=== PATIENT | male | born 1970 | race Caucasian/White ===

== ENCOUNTER → 2022-05-16 | Outpatient (CLI) | payer OTHER, SELFPAY ==
[2022-05-16 10:42] LABS: Troponin-I HS 8 pg/mL (3.0-78.0)
== END | disposition home or self-care (01) ==
LOC: LABSPEC 10:10
PROVIDERS: Visit Provider Internal Medicine
DX: R07.89 Other chest pain (principal)
CPT/HCPCS: 84484

== ENCOUNTER → 2022-06-06 | Outpatient (CLI) | payer OTHER, MEDICAID, SELFPAY ==
--- NOTE | 2022-06-06 09:00 | ECHOD_ITS ---
Reason For Study: CHEST PAIN Procedure This was a 2D Doppler, Color Flow transthoracic echocardiogram. Exam performed in department. Left Ventricle Normal LV size. Left ventricular systolic function is normal. The estimated ejection fraction is 55 %. Stage 1 diastolic dysfunction. No regional wall motion abnormalities noted. Right Ventricle Normal RV size. Normal systolic function. Atria Normal left atrium. Normal right atrium. Mitral Valve Normal mitral valve. Tricuspid Valve Normal tricuspid valve. Aortic Valve Normal aortic valve. Pulmonic Valve Normal pulmonic valve. Great Vessels Normal aortic root. The pulmonary artery is normal size. Normal inferior vena cava. Pericardium/Pleural No pericardial effusion. MMode/2D Measurements & Calculations RVDd: 3.6 cm Ao root diam: 3.0 cm LAV(MOD-bp): 75.7 ml LAV(MOD-bp) Indexed: 38.0 ml/m2 LAV(MOD-sp2): 86.3 ml LAV(MOD-sp4): 58.0 ml SV(MOD-sp4): 74.2 ml LVAd ap4: 39.0 cm2 LVAd ap2: 38.2 cm2 LVLd ap4: 9.0 cm LVLd ap2: 8.7 cm EDV(MOD-sp4): 137.8 ml EDV(MOD-sp2): 139.1 ml EDV(sp4-el): 144.1 ml EDV(sp2-el): 142.2 ml LVAs ap4: 24.5 cm2 LVAs ap2: 24.1 cm2 LVLs ap4: 8.0 cm LVLs ap2: 7.4 cm ESV(MOD-sp4): 63.5 ml ESV(MOD-sp2): 65.0 ml ESV(sp4-el): 63.7 ml ESV(sp2-el): 66.4 ml EF(MOD-sp4): 53.9 % EF(MOD-sp2): 53.3 % EF(sp4-el): 55.8 % SV(MOD-sp2): 74.1 ml SV(sp4-el): 80.4 ml LA A4 area: 19.3 cm2 LA dimension(2D): 3.9 cm RA A4 area: 18.8 cm2 Doppler Measurements & Calculations MV E max elver: 47.8 cm/sec Lat Peak E' Elver: 13.0 cm/sec Med Peak E' Elver: 8.9 cm/sec MV A max elver: 106.5 cm/sec E/E' lat: 3.7 E/E' med: 5.4 MV E/A: 0.45 Ao V2 max: 141.3 cm/sec LV V1 max: 111.0 cm/sec PA V2 max: 91.7 cm/sec Ao max P.0 mmHg LV V1 max P.9 mmHg PA V2 mean: 67.1 cm/sec Ao V2 mean: 93.7 cm/sec LV V1 mean P.4 mmHg Ao mean P.1 mmHg LV V1 mean: 70.2 cm/sec Ao V2 VTI: 33.5 cm LV V1 VTI: 26.9 cm ECHO/Echo Complete Interpretation Summary Normal LV size. Left ventricular systolic function is normal. The estimated ejection fraction is 55 %. Stage 1 diastolic dysfunction. Structurally normal valves. Ordering Physician: Paloma Paez Referring Physician: Paloma Paez Performed By: Lo Gaytan RCS
== END | disposition home or self-care (01) ==
LOC: CVS 08:58
PROVIDERS: PCP Internal Medicine; Referring Provider Internal Medicine; Visit Provider Internal Medicine
DX: R07.89 Other chest pain (principal); R00.1 Bradycardia, unspecified
CPT/HCPCS: 93225; 93226; 93306

== ENCOUNTER → 2022-08-23 | Outpatient (CLI) | payer OTHER, MEDICAID, SELFPAY ==
--- NOTE | 2022-08-23 11:43 | CT_ITS ---
STUDY: CT BRAIN WITHOUT CONTRAST REASON FOR EXAM: Male, 52 years old. Syncopal episode resulting in HEAD TRAUMA RADIATION DOSAGE (If Supplied By Facility): CTDIvol = ( 44.99 ) mGy, DLP = ( 796.11 ) mGycm TECHNIQUE: Transaxial CT imaging of the brain was performed without administration of intravenous contrast material. Individualized dose optimization techniques were used for this CT. COMPARISON: No relevant priors. FINDINGS: Normal soft tissue structures. Normal calvarium. Normal size ventricles and extra-axial spaces for the patient''s age. Normal white matter tracts of the cerebral hemispheres. Normal basal ganglia and thalami. Normal brainstem. Normal cerebellum. There is no intracranial hemorrhage. There are no findings of an acute ischemic infarction. Mucosal thickening of the ethmoid sinuses bilaterally. Mucosal thickening along the posterior medial aspect of the left maxillary sinus. CT/Brain/Head without Contrast IMPRESSION: Normal unenhanced CT scan of the brain. Mild degree of sinusitis. Electronically Signed: Napoleon Webber MD at 12:18 EDT ,
== END | disposition home or self-care (01) ==
LOC: CT 11:39
PROVIDERS: PCP Internal Medicine; Referring Provider Internal Medicine; Visit Provider Internal Medicine
DX: R55 Syncope and collapse (principal); S09.90XA Unspecified injury of head, initial encounter
CPT/HCPCS: 70450

== ENCOUNTER → 2022-10-25 | Outpatient (CLI) | payer OTHER, MEDICAID, SELFPAY ==
--- NOTE | 2022-10-25 12:33 | STRESSREP_ITS ---
Stress Test Report Date: 10-25-2022 Procedure: Exercise tolerance test/imaging study Indications: Chest pain; bradycardia; syncope Consent: Per the patient Procedure: The patient exercised on a Yassine protocol for 11 minutes completing Stage III and 2 minutes of Stage IV achieving a peak heart rate of 184 bpm (108% predicted maximal heart rate) with resting blood pressure of 102/74 mmHg and a peak blood pressure 192/90 mmHg and a peak MET capacity of 13 METs. The baseline ECG demonstrated marked sinus bradycardia. The peak exercise ECG demonstrated somatic/motion artifact with no obvious ECG changes. There were no cardiac dysrhythmias pretest, during exercise, or recovery. The functional capacity was considered good. There was no complaint of chest discomfort during exercise or recovery. The examination was discontinued secondary to dyspnea. Impression: 1. Technically adequate (percent predicted maximal heart rate greater than 85%) exercise tolerance test 2. Peak exercise ECG with somatic/motion artifact with no obvious ECG changes 3. There were no cardiac dysrhythmias pretest, during exercise, or recovery 4. Nuclear images pending Myocardial perfusion imaging study: Technique: The patient was injected with 11.9 mCi of technetium 99m Cardiolite and subsequently rest SPECT Cardiolite nuclear imaging was obtained in the ho rizontal long, vertical long, and short axis views. The patient exercised on a Yassine protocol for 11 minutes completing Stage III and 2 minutes of Stage IV achieving a peak heart rate of 184 bpm (108% predicted maximal heart rate) with resting blood pressure of 102/74 mmHg and a peak blood pressure 192/90 mmHg and a peak MET capacity of 13 METs. The patient was injected with 34.6 mCi of technetium 99m Cardiolite and subsequently stress SPECT Cardiolite nuclear imaging was obtained in the horizontal long, vertical long, and short axis views. A gated Cardiolite study at peak stress was obtained. Interpretation: Rest and stress SPECT Cardiolite nuclear imaging status post realignment, normalization, and attenuation correction, demonstrates the appearance of relative uniform tracer uptake and myocardial perfusion appearing within normal limits. There is end systolic thickening and brightening. The gated Cardiolite study demonstrates myocardial thickening and inward wall motion. The reported LVEF is 63%. Impression: 1. Rest and stress SPECT Cardiolite nuclear imaging demonstrate relative uniform tracer uptake and myocardial perfusion appearing within normal limits. 2. The gated Cardiolite study reports an LVEF of 63%. This note was generated with Dragon dictation software. It may contain incorrect words, spelling, and punctuation that were not noted in checking the note before signing.
== END | disposition home or self-care (01) ==
LOC: CVS 06:00
PROVIDERS: PCP Internal Medicine; Visit Provider Internal Medicine Cardiovascular Disease
DX: R00.1 Bradycardia, unspecified (principal); R07.9 Chest pain, unspecified; R55 Syncope and collapse
CPT/HCPCS: 78452; 93017; A9500; A4216

== ENCOUNTER 2024-10-05 22:35 | Emergency (ER) | payer OTHER, MEDICAID, SELFPAY ==
[2024-10-05 22:36] VITALS: BP 108/66; PULSE 120; RESP 20; TEMP 38.3; O2SAT 97; BMI 26.8
[2024-10-05 22:37] VITALS: BP 108/66; PULSE 120; RESP 20; TEMP 38.3; O2SAT 97
[2024-10-05 22:51] LABS: Absolute Lymphocyte Count 0.68 X10^3/uL (0.83-4.51); Absolute Neutrophil Count 14.4 X10^3/uL (2.0-7.7); Basophil# 0.06 X10^3/uL; Basophil% 0.4 % (0-1); Eosinophil# 0.41 X10^3/uL; Eosinophils% 2.5 % (0-5); Hematocrit 46.2 % (40-54); Hemoglobin 16.1 g/dL (13.0-16.5); Lymphocyte # 0.68 X10^3/ul (0.83-4.51); Lymphocyte % 4.1 % (19-41); Mean Corp Hgb Conc 34.8 g/dL (32-36); Mean Platelet Vol. 10.1 fl (6.2-12.0); Monocyte# 0.97 X10^3/uL; Monocyte% 5.8 % (0-10); NRBC Flagged by Analyzer 0 % (0-5); Neutrophil # 14.42 X10^3/uL (2.7-7.7); Neutrophil % 86.8 % (47-70); Platelet Count 248 K/mm3 (150-450); RBC Distribution Width CV 12.2 % (11.6-14.6); RBC Distribution Width SD 39.9 fl (35.1-43.9); Red Blood Count 5.19 M/mm3 (4.6-6.2); White Blood Count 16.6 K/mm3 (4.4-11.0)
[2024-10-05 23:07] LABS: ALB/GLOB Ratio 1.4 RATIO (0.9-2.4); AST(SGOT) 21 U/L (15-37); Alanine Aminotransfer ALT/SGPT 22 U/L (16-61); Albumin, Serum 4.2 g/dL (3.2-5.0); Alkaline Phosphatase 68 U/L (45-117); Anion Gap 7 (5-15); BUN 22 mg/dL (7-18); BUN/Creat Ratio 23.1 RATIO (10-20); Calcium,Total 9.1 mg/dL (8.5-10.1); Chloride 107 mmol/L (98-107); Creatinine, Serum 0.95 mg/dL (0.70-1.30); EST Glomerular Filtration Rate 88 mL/min (>60); Est Glom Filt Rate - Afr Amer 107 mL/min (>60); Estimated Creatinine Clearance 90.96 ml/min; Globulin 2.9 g/dL (2.2-4.2); Glucose 112 mg/dL (74-106); Protein, Total 7.1 g/dL (6.4-8.2); Sodium Level 138 mmol/L (136-145)
--- NOTE | 2024-10-05 23:10 | CT_ITS ---
STUDY: CT ABDOMEN AND PELVIS WITH CONTRAST REASON FOR EXAM: Male, 54 years old. Fever, right lower quadrant abdominal pain RADIATION DOSAGE (If Supplied By Facility): CTDIvol = ( 11.69 ) mGy, DLP = ( 967.12 ) mGycm TECHNIQUE: Transaxial images were obtained from the dome of the diaphragm to the symphysis pubis without oral contrast. IV 100mL Isovue-370 was administered. Sagittal and coronal images were reconstructed. Individualized dose optimization techniques were used for this CT. The protocol utilizes one or more of the following dose reduction techniques: automated exposure control, adjustment of mA and/or kV according to patient size,and/or use of iterative reconstruction technique. COMPARISON: None. FINDINGS: Pleural-based 4 mm nodule right middle lobe. The visualized portions of the heart are within normal limits. Normal liver. Normal gallbladder and extrahepatic biliary system. Subcentimeter splenic cyst. Normal pancreas. Normal bilateral adrenal glands. Normal right kidney. 10 mm left renal cortical cyst. No further follow-up required as appears simple/benign. Normal visualized stomach. Multiple air-fluid levels in the small bowel. Multiple air-fluid levels noted in the colon. Appendix not identified. Normal abdominal aorta. Normal inferior vena cava. Normal retroperitoneum. Normal urinary bladder. Normal abdominal wall. Normal osseous structures. CT/Abdomen/Pelvis W IV Cont ONLY IMPRESSION: Ileus and/or nonspecific diarrheal disease. Appendix is not identified. Therefore appendicitis is difficult to exclude. 2 to 3 hour delayed oral contrast may be helpful. 4 mm pleural-based nodule right lung base. Recommend follow-up nonemergent CT chest. Electronically Signed: Sánchez Lawson MD at 23:50 EST ,
--- NOTE | 2024-10-05 23:11 | EX.ED.DYSGE1 ---
HPI <Dr. Mert Lima MD - Last Filed: 10/10/24 10:14> History of Present Illness Chief Complaint: Abd Pain Detail of Chief Complaint: Crampy abdominal pain with nausea and fever Informant: patient Onset/Context/Timing Onset: Today (1600) Context: Sudden Onset Timing: Continuous Quality: Pain Location: Lower abdomen bilaterally Current Severity: Mild Maximum Severity: Severe Worsened by: Nothing specific Relieved by: Nothing Associated Symptoms Associated Symptoms: Nausea and fever Narrative Narrative: Patient 54-year-old male with history of sinus bradycardia and syncope who presents with fever, myalgias arthralgias, bilateral lower abdominal pain with nausea that started at 1600. He denies dysuria, frequency, urgency or hematuria. He denies headache. Denies double vision blurred vision loss of vision. He denies chest pain, shortness of breath or difficulty breathing. He denies rhinorrhea, congestion, postnasal drainage sore throat. He denies cough. He denies diarrhea. He has not noted any skin lesions. He is a smoker. Prior similar symptoms: No Recent Illness/Hospitalization: No PFSH <Dr. Mert Lima MD - Last Filed: 10/10/24 10:14> PFSH Medical History Sinus bradycardia Home Medications ?Medication ?Instructions ?Recorded ?Last Taken ?Type NK 10/10/22 Unknown History dicyclomine 10 mg capsule 20 mg (2 x 10 mg) PO Q6H PRN PRN 10/06/24 Unknown Rx abdominal discomfort #20 CAPSULES Allergy/AdvReac Type Severity Reaction Status Date / Time No Known Allergies Allergy Verified 10/05/24 22:36 Family History Grandfather Bradycardia Uncle Bradycardia Surgical History History of shoulder surgery History of arthroscopy of right knee Social History Smoking Status: Current every day smoker tobacco type: cigarettes Smokeless tobacco user: chewing tobacco alcohol intake: current details: occasional substance use type: does not use caffeine: Yes Type: coffee Number of servings: 8 ROS <Dr. Mert Lima MD - Last Filed: 10/10/24 10:14> ROS ED Constitutional Constitutional ED: Reports chills and fever(s); Denies sweats Eyes Eyes: Denies blurry vision or change in vision ENT ENT ED: Denies ear pain, rhinorrhea or sore throat Cardiovascular Cardiovascular: Denies chest pain or palpitations Respiratory/Chest Respiratory/Chest: Denies cough, dyspnea or dyspnea on exertion Gastrointestinal Gastrointestinal: Reports abdominal pain and nausea; Denies constipation, diarrhea, melena or vomiting Genitourinary Genitourinary ED: Denies dysuria, hematuria or urinary frequency Musculoskeletal Musculoskeletal: Denies arthralgias, back pain, myalgias or neck pain Integumentary Denies rash Neurologic Neurologic: Reports weakness; Denies headache(s) or paresthesias Endocrine Endocrinology: Denies cold intolerance or heat intolerance Hematologic/Lymphatic Hematologic/Lymphatic: Reports systems reviewed and no addt'l complaints, except as documented EXAM <Dr. Mert Lima MD - Last Filed: 10/10/24 10:14> Physical Exam Const Vital Signs: 10/05/24 22:36 10/05/24 22:37 10/05/24 23:37 Temperature 100.9 F H 100.9 F H 100 F H Temperature Source Oral Oral Oral Pulse Rate 120 H 120 H 94 Respiratory Rate 20 H 20 H 19 H Blood Pressure 108/66 108/66 125/85 H Blood Pressure Mean 80 80 98 Pulse Ox 97 97 92 Oxygen Delivery Method Room Air Room Air Room Air 10/06/24 00:03 10/06/24 00:15 10/06/24 00:30 Temperature Temperature Source Pulse Rate 93 88 95 Respiratory Rate 21 H 17 Blood Pressure 126/77 H Blood Pressure Mean 91 Pulse Ox 93 95 Oxygen Delivery Method 10/06/24 00:45 10/06/24 01:00 10/06/24 01:00 Temperature 99.2 F H Temperature Source Oral Pulse Rate 90 89 101 H Respiratory Rate 18 20 H 21 H Blood Pressure 114/74 127/82 H 127/84 H Blood Pressure Mean 85 97 97 Pulse Ox 93 92 92 Oxygen Delivery Method Room Air 10/06/24 01:15 10/06/24 01:30 10/06/24 01:45 Temperature Temperature Source Pulse Rate 90 91 98 Respiratory Rate 19 H 18 19 H Blood Pressure 123/84 H 122/84 H 117/81 H Blood Pressure Mean 96 94 91 Pulse Ox 92 95 90 Oxygen Delivery Method 10/06/24 02:00 10/06/24 02:00 10/06/24 03:00 Temperature 100 F H 99.5 F H Temperature Source Oral Oral Pulse Rate 96 95 89 Respiratory Rate 20 H 21 H 18 Blood Pressure 116/76 105/71 Blood Pressure Mean 89 82 Pulse Ox 92 92 92 Oxygen Delivery Method Room Air Room Air 10/06/24 04:00 10/06/24 05:00 Temperature 99.4 F H 99.4 F H Temperature Source Oral Oral Pulse Rate 98 83 Respiratory Rate 18 16 Blood Pressure 107/69 102/70 Blood Pressure Mean 81 80 Pulse Ox 95 93 Oxygen Delivery Method Room Air Room Air Positive well nourished Constitutional Narrative: Patient appears ill. He is not tachypneic. He denies shortness of breath, however. General Appearance ED: Negative for NAD or pallor HEENT Reports dry mucous membranes HEENT Narrative: Head is atraumatic normocephalic. Ears normal. Nares patent. Posterior pharynx is normal. Mouth ED: Yes dry mucous membranes Mouth: dry mucous membranes Eyes PERRL and EOMs intact bilaterally General Eye ED: Negative for pale conjunctiva or scleral icterus Neck no lymphadenopathy, supple and no JVD Chest Wall inspection of chest normal and palpation of chest normal Resp normal respiratory effort and clear to auscultation bilaterally Cardio regular rate, regular rhythm, S1 normal heart sound, S2 normal heart sound and no murmurs GI non-distended and no masses; Negative for normal to inspection, nondistended, normoactive bowel sounds, non-tender or hepatosplenomegaly GI Narrative: Patient's abdomen is tympanic throughout. There is significant tenderness in the right lower quadrant. Patient has guarding in the right lower quadrant. Bowel sounds are diminished. Abdomen is soft in the upper quadrant. There is no percussion tenderness. Inspection: abdominal distention Back/Spine no CVA tenderness Extremity normal to inspection General Extremety ED: Negative for edema or tenderness General Extremity: Negative for edema Neuro oriented x3 and CN's II-XII intact bilaterally Sensorium / Orientation: alert Motor Exam: strength 5/5 throughout Psych mental status grossly normal Skin no rashes or lesions noted, no wounds and skin turgor normal General Skin Exam: elasticity normal; Negative for jaundice or pallor <Dr. Yinka Acosta MD - Last Filed: 10/06/24 06:02> Physical Exam Const Vital Signs: 10/05/24 22:36 10/05/24 22:37 10/05/24 23:37 Temperature 100.9 F H 100.9 F H 100 F H Temperature Source Oral Oral Oral Pulse Rate 120 H 120 H 94 Respiratory Rate 20 H 20 H 19 H Blood Pressure 108/66 108/66 125/85 H Blood Pressure Mean 80 80 98 Pulse Ox 97 97 92 Oxygen Delivery Method Room Air Room Air Room Air 10/06/24 00:03 10/06/24 00:15 10/06/24 00:30 Temperature Temperature Source Pulse Rate 93 88 95 Respiratory Rate 21 H 17 Blood Pressure 126/77 H Blood Pressure Mean 91 Pulse Ox 93 95 Oxygen Delivery Method 10/06/24 00:45 10/06/24 01:00 10/06/24 01:00 Temperature 99.2 F H Temperature Source Oral Pulse Rate 90 89 101 H Respiratory Rate 18 20 H 21 H Blood Pressure 114/74 127/82 H 127/84 H Blood Pressure Mean 85 97 97 Pulse Ox 93 92 92 Oxygen Delivery Method Room Air 10/06/24 01:15 10/06/24 01:30 10/06/24 01:45 Temperature Temperature Source Pulse Rate 90 91 98 Respiratory Rate 19 H 18 19 H Blood Pressure 123/84 H 122/84 H 117/81 H Blood Pressure Mean 96 94 91 Pulse Ox 92 95 90 Oxygen Delivery Method 10/06/24 02:00 10/06/24 02:00 10/06/24 03:00 Temperature 100 F H 99.5 F H Temperature Source Oral Oral Pulse Rate 96 95 89 Respiratory Rate 20 H 21 H 18 Blood Pressure 116/76 105/71 Blood Pressure Mean 89 82 Pulse Ox 92 92 92 Oxygen Delivery Method Room Air Room Air 10/06/24 04:00 10/06/24 05:00 Temperature 99.4 F H 99.4 F H Temperature Source Oral Oral Pulse Rate 98 83 Respiratory Rate 18 16 Blood Pressure 107/69 102/70 Blood Pressure Mean 81 80 Pulse Ox 95 93 Oxygen Delivery Method Room Air Room Air MDM <Dr. Mert Lima MD - Last Filed: 10/10/24 10:14> MDM MDM Narrative Medical decision making narrative: Differential diagnosis would include viral illness, mesenteric adenitis, inflammatory bowel disorder, appendicitis and abdominal pain of unknown etiology. CBC, BMP were obtained. Lab Data Attestation: I reviewed the patient's lab results. Lab results narrative: CBC is elevated 16.6 thousand with shift. There is no bandemia. H&H is normal. Electrolyte panel is unremarkable. Glucose slightly elevated 112. BUN to creatinine ratio is 23:1. Liver profile is unremarkable. Labs: Laboratory Results - last 24 hr 10/05/24 10/05/24 10/06/24 22:42 23:46 00:43 WBC 16.6 H RBC 5.19 Hgb 16.1 Hct 46.2 MCV 89.0 MCH 31.0 MCHC 34.8 RDW Std Deviation 39.9 RDW Coeff of Fabiana 12.2 Plt Count 248 MPV 10.1 Immature Gran % (Auto) 0.400 Neut % (Auto) 86.8 H Lymph % (Auto) 4.1 L Edwards % (Auto) 5.8 Eos % (Auto) 2.5 Baso % (Auto) 0.4 Absolute Neuts (auto) 14.4 H Absolute Lymphs (auto) 0.68 L Nucleated RBC % 0 Sodium 138 Potassium 4.0 Chloride 107 Carbon Dioxide 23.0 Anion Gap 7 BUN 22 H Creatinine 0.95 Estim Creat Clear Calc 90.96 Est GFR (MDRD) Af Amer 107 Est GFR (MDRD) Non-Af 88 BUN/Creatinine Ratio 23.1 H Glucose 112 H Lactic Acid 0.6 Calcium 9.1 Total Bilirubin 1.10 H AST 21 ALT 22 Alkaline Phosphatase 68 Total Protein 7.1 Albumin 4.2 Globulin 2.9 Albumin/Globulin Ratio 1.4 Lipase 15 Urine Color Yellow Urine Clarity Clear Urine pH 6.0 Ur Specific Hooper 1.010 Urine Protein 15 H Urine Glucose (UA) Normal Urine Ketones 15 H Urine Occult Blood Negative Urine Nitrite Negative Urine Bilirubin Negative Urine Urobilinogen Normal Ur Leukocyte Esterase Negative Urine RBC 0 SEEN Urine WBC 0 SEEN Ur Squamous Epith Cells 0-5 SEEN Urine Bacteria 0 SEEN Urine Mucus 0 SEEN Radiography Diagnostic Testing: Clinical Impression(s) from Imaging Studies Abdomen/Pelvis CT 10/05/24 23:10 IMPRESSION: Ileus and/or nonspecific diarrheal disease. Appendix is not identified. Therefore appendicitis is difficult to exclude. 2 to 3 hour delayed oral contrast may be helpful. 4 mm pleural-based nodule right lung base. Recommend follow-up nonemergent CT chest. Electronically Signed: Sánchez Lawson MD at 23:50 EST , Abdomen CT 10/06/24 00:24 IMPRESSION: Appendix is not definitely identified, however, there are no significant right lower quadrant inflammatory fat changes or focal fluid collection to suggest acute appendicitis. Otherwise, no acute abdominal abnormality is identified, to include no evidence of obstructing ureteral calculus. 4 mm pulmonary nodule. Recommend comparison with previous imaging to document long-term stability versus follow-up evaluation as per Fleischner guidelines as neoplastic process is not excluded. Electronically Signed: Harmeet Wagner MD at 5:24 EST , Radiologist was not able to see the appendix either. In light of this we will call Dr. Esteban's and discussed case. Options are observation reeval in the morning versus oral contrast with delayed films in 2 to 4 hours. Management Discussion w/another healthcare provider: Real Estate Marketing Coordinator (Spoke Dr. Solis. Reviewed CAT scan with him. He is in agreement with radiologist the appendix is not visualized. He agrees with recommendation by radiologist delayed oral film. Merchandising Team Lead was made aware.) and Radiologist (Recommended oral contrast to determine if the appendix can be visualized.) Treatment and Re-Evaluation :: Patient's heart rate improved with pain medicine and fluids. Comments:: Care was transferred to the evening physician Dr. Tristan Acosta. He is to contact Dr. Solis after CT of the abdomen and pelvis with oral contrast has been completed and interpreted. <Dr. Yinka Acosta MD - Last Filed: 10/06/24 06:02> [facility] Lab Data Labs: Laboratory Results - last 24 hr 10/05/24 10/05/24 10/06/24 22:42 23:46 00:43 WBC 16.6 H RBC 5.19 Hgb 16.1 Hct 46.2 MCV 89.0 MCH 31.0 MCHC 34.8 RDW Std Deviation 39.9 RDW Coeff of Fabiana 12.2 Plt Count 248 MPV 10.1 Immature Gran % (Auto) 0.400 Neut % (Auto) 86.8 H Lymph % (Auto) 4.1 L Edwards % (Auto) 5.8 Eos % (Auto) 2.5 Baso % (Auto) 0.4 Absolute Neuts (auto) 14.4 H Absolute Lymphs (auto) 0.68 L Nucleated RBC % 0 Sodium 138 Potassium 4.0 Chloride 107 Carbon Dioxide 23.0 Anion Gap 7 BUN 22 H Creatinine 0.95 Estim Creat Clear Calc 90.96 Est GFR (MDRD) Af Amer 107 Est GFR (MDRD) Non-Af 88 BUN/Creatinine Ratio 23.1 H Glucose 112 H Lactic Acid 0.6 Calcium 9.1 Total Bilirubin 1.10 H AST 21 ALT 22 Alkaline Phosphatase 68 Total Protein 7.1 Albumin 4.2 Globulin 2.9 Albumin/Globulin Ratio 1.4 Lipase 15 Urine Color Yellow Urine Clarity Clear Urine pH 6.0 Ur Specific Hooper 1.010 Urine Protein 15 H Urine Glucose (UA) Normal Urine Ketones 15 H Urine Occult Blood Negative Urine Nitrite Negative Urine Bilirubin Negative Urine Urobilinogen Normal Ur Leukocyte Esterase Negative Urine RBC 0 SEEN Urine WBC 0 SEEN Ur Squamous Epith Cells 0-5 SEEN Urine Bacteria 0 SEEN Urine Mucus 0 SEEN Radiography Diagnostic Testing: Clinical Impression(s) from Imaging Studies Abdomen/Pelvis CT 10/05/24 23:10 IMPRESSION: Ileus and/or nonspecific diarrheal disease. Appendix is not identified. Therefore appendicitis is difficult to exclude. 2 to 3 hour delayed oral contrast may be helpful. 4 mm pleural-based nodule right lung base. Recommend follow-up nonemergent CT chest. Electronically Signed: Sánchez Lawson MD at 23:50 EST , Abdomen CT 10/06/24 00:24 IMPRESSION: Appendix is not definitely identified, however, there are no significant right lower quadrant inflammatory fat changes or focal fluid collection to suggest acute appendicitis. Otherwise, no acute abdominal abnormality is identified, to include no evidence of obstructing ureteral calculus. 4 mm pulmonary nodule. Recommend comparison with previous imaging to document long-term stability versus follow-up evaluation as per Fleischner guidelines as neoplastic process is not excluded. Electronically Signed: Harmeet Wagner MD at 5:24 EST , Treatment and Re-Evaluation Vital Sign Attestation:: Patient turned over to me as above. I reviewed the CT images and the report which I agree with, it is normal/negative again without any signs of inflammatory changes or collections in the right lower quadrant and the appendix is again not visualized. I reexamined the patient. He has no tenderness including McBurney's point. He states the pain feels more like cramping. He states he recalls having some of the symptoms in the past when he ate meat and/or dairy. Discussed all this with Dr. Raphael with surgery again, he agrees that there is nothing surgical on his imaging, it looked like possible enterocolitis on the initial scan, however the patient did not have any diarrhea before he got here and has not had any while being observed here in the emergency department. I agree this is very unlikely to be appendicitis given the normal CT especially with the significant amount of time delay between the 2 sets of imaging. Patient is comfortable going home. Perhaps viral illness, his urine is negative for infection, he will be offered a prescription for dicyclomine but advised to follow-up closely with his doctor as an outpatient if symptoms do not resolve after couple days. He is comfortable with that plan. Discharge Plan Triage Chief Complaint: Abd Pain ED Provider: Mert Lima Dx/Rx/DC Orders Clinical Impression: Abdominal pain, acute, right lower quadrant, Leukocytosis, Fever Instructions: Abdominal Pain Prescriptions: New dicyclomine 10 mg capsule 20 mg PO Q6H PRN PRN (Reason: abdominal discomfort) Qty: 20 0RF No Action NK Primary Care Provider: Paloma Paez Referrals: Paloma Paez, [Primary Care Provider] - 3-5 Days if not improving Print Language: Persian Disposition Disposition: Home, Self Care Discharge Date/Time: 10/06/24 06:13
[2024-10-05 23:37] VITALS: BP 125/85; PULSE 94; RESP 19; TEMP 37.7; O2SAT 92
[2024-10-05] MEDS: 0.9% Normal Saline (1000mL) 1,000 ML 1000 ML IV (23:47)
[2024-10-05] MEDS: Ondansetron 4 MG/2 ML Vial IV (23:47)
[2024-10-05] MEDS: morphine 8 MG/ML Syringe 6 MG IV (23:47)
[2024-10-06] VITALS (14 sets, daily range): BP systolic 102–127; BP diastolic 69–84; PULSE 83–101; RESP 16–21; TEMP 37.3–37.7; O2SAT 90–95
[2024-10-06 00:24] LABS: Lactic Acid 0.6 mmol/L (0.4-1.9)
--- NOTE | 2024-10-06 00:24 | CT_ITS ---
INDICATION: RLQ tenderness, fever, leukocytosis -- Nondiagnostic CT with IV contrast COMPARISON: Abdominal CT previous day. A radiation dose optimization technique was used for this scan. RADIATION DOSAGE (If Supplied By Facility): CTDIvol/DLP = ( 9.09 ) / ( 499.69 ) mGy/mGycm FINDINGS: Noncontrast serial CT axial images through the abdomen and pelvis with coronal and sagittal reformatted series. However, there is persistent contrast excretion within the urinary collecting system from examination of 5 hours prior. PANCREAS: No peripancreatic fat stranding. BOWEL/MESENTERY: No dilated bowel loops. No significant free fluid. No free air. GALLBLADDER: No pericholecystic fat stranding. LIVER/STOMACH: No obvious abnormality. URINARY COLLECTING SYSTEM/ KIDNEYS: No obstructing ureteral calculus. No significant renal parenchymal abnormality. APPENDIX: Appendix is not definitely identified, however, there are no significant right lower quadrant inflammatory fat changes or focal fluid collection to suggest acute appendicitis. LUNG BASES: 4 mm right middle lobe subpleural pulmonary nodule. BONES: Unremarkable for age. CT/Abdomen/Pel W ORAL Cont Only IMPRESSION: Appendix is not definitely identified, however, there are no significant right lower quadrant inflammatory fat changes or focal fluid collection to suggest acute appendicitis. Otherwise, no acute abdominal abnormality is identified, to include no evidence of obstructing ureteral calculus. 4 mm pulmonary nodule. Recommend comparison with previous imaging to document long-term stability versus follow-up evaluation as per Fleischner guidelines as neoplastic process is not excluded. Electronically Signed: Harmeet Wagner MD at 5:24 EST ,
[2024-10-06 00:49] LABS: Bacteria 0 SEEN /hpf (None Seen); Color, Urine Yellow (Yellow); Glucose, Dipstick Normal (Normal); Ketone-Dipstick 15 mg/dl (Negative); Leukocyte Esterase-Dipstick Negative /ul (Negative); Mucous, Urine 0 SEEN /hpf (<or=2+); Nitrite-Dipstick Negative (Negative); Occult Blood-Urine Negative /ul (Negative); Protein-Dipstick 15 mg/dl (Negative); Red Blood Cells-Urine 0 SEEN /hpf (0-5); Urine Bilirubin Dipstick Negative (Negative); Urine Clarity Clear (Clear); Urine Urobilinogen Normal (Normal); White Blood Cells 0 SEEN /hpf (0-5)
[2024-10-06 00:56] LABS: Lipase 15 U/L (13-75)
[2024-10-06 01:23] LABS: Squamous Epithelial Cells - UA 0-5 SEEN /hpf (0-5)
== END 2024-10-06 06:13 | disposition home or self-care (01) ==
PROVIDERS: Emergency Provider Emergency Medicine; PCP Internal Medicine; Visit Provider Emergency Medicine
DX: R10.31 Right lower quadrant pain (principal); R50.9 Fever, unspecified; F17.220 Nicotine dependence, chewing tobacco, uncomplicated; R11.0 Nausea; D72.829 Elevated white blood cell count, unspecified; F17.210 Nicotine dependence, cigarettes, uncomplicated
CPT/HCPCS: 74176; 74177; 80053; 81001; 83605; 83690; 85025; 96361; 96374; 96375; 99284; J7030; Q9967; A4216; J2405

== ENCOUNTER → 2024-12-02 | Outpatient (CLI) | payer OTHER, SELFPAY ==
--- NOTE | 2024-12-02 17:51 | CT_ITS ---
INDICATION: CT CHEST, WITH CONTRAST (57322) : nodule f/u -- Pulmonary nodule, right EXAMINATION: CT CHEST WITH CONTRAST - CT Chest W/ Contrast Injection TECHNIQUE: Helically acquired images were obtained of the chest following IV contrast. The protocol utilizes one or more of the following dose reduction techniques: automated exposure control, adjustment of mA and/or kV according to patient size,and/or use of iterative reconstruction technique. IV Contrast: IV 100mL [id number] . RADIATION DOSAGE (If Supplied By Facility): CTDIvol = ( 12.92 ) mGy, DLP = ( 365.59 ) mGycm COMPARISON: Prior study dated: CT abdomen pelvis 10/06/2024 FINDINGS: LUNGS: No consolidation. 4 mm nodule right middle lobe subpleural, unchanged compared to prior. PLEURA: No pleural effusion. No pneumothorax. MEDIASTINUM: Unremarkable. HEART: Not enlarged. Coronary artery calcifications are noted. AORTA: Normal caliber. UPPER ABDOMEN: No acute abnormalities. BONES/SOFT TISSUES: No acute abnormalities. OTHER: None. CT/Chest WITH Contrast IMPRESSION: 4 mm pulmonary nodule right middle lobe unchanged. Follow-up recommended according to Fleischner Society guidelines: If low risk patient, no follow-up needed; if high-risk patient, i.e. smoking or other risk factors: Optional CT chest at 12 months. *Fleischner Society Recommendations (Radiology 2017, [id number]:[id number].) (Follow-up and management of solitary nodules smaller than 8 mm detected incidentally at non-screening CT. Newly detected indeterminate nodule in persons 35 years of age or older.) Low risk patient: Minimal or absent history of smoking and of other known risk factors. < 6 mm: No followup needed 6-8mm: Initial Follow-up CT at 6-12 months, then consider CT at 18-24 months >8mm: Consider CT at 3 months, FDG PET scan, or biopsy High risk patient: History of smoking or of other known risk factors. < 6 mm: Optional CT at 12 months. 6-8mm: CT abdomen 6-12 months, then CT at 18-24 months. >8mm: Consider CT at 3 months, FDG PET scan, or biopsy Electronically Signed: Nena Jasso MD at 6:20 EST ,
== END | disposition home or self-care (01) ==
PROVIDERS: PCP Internal Medicine; Referring Provider Internal Medicine; Visit Provider Internal Medicine
DX: R91.1 Solitary pulmonary nodule (principal)
CPT/HCPCS: 71260; Q9967

== ENCOUNTER → 2024-12-25 | Outpatient (CLI) | payer OTHER, SELFPAY | END | disposition home or self-care (01) | LOC: MRI 08:42 | PROVIDERS: PCP Internal Medicine; Referring Provider Internal Medicine; Visit Provider Internal Medicine | DX: M25.562 Pain in left knee (principal) ==

== ENCOUNTER → 2025-09-06 | Outpatient (CLI) | payer OTHER, SELFPAY ==
--- NOTE | 2025-09-06 18:30 | CT_ITS ---
PROCEDURE: CT/Chest without Contrast
== END | disposition home or self-care (01) ==
LOC: CT 18:27
PROVIDERS: PCP Internal Medicine; Referring Provider Internal Medicine Pulmonary Disease; Visit Provider Internal Medicine Pulmonary Disease
DX: R91.1 Solitary pulmonary nodule (principal)
CPT/HCPCS: 71250